=== PATIENT | male | born 1935 | race Caucasian/White ===

== ENCOUNTER 2017-08-28 18:19 | Observation (INO) | payer MEDICARE ==
[~2017-08-28] VITALS: Ht 152.4 cm; Wt 133.6 kg
[2017-08-28] VITALS (8 sets, daily range): BP systolic 130–155; BP diastolic 59–74; PULSE 62–72; RESP 13–20; Ht 152.4 cm; Wt 133.6 kg
[2017-08-28] MEDS ORDERED: TERA5CAP3 PO (18:48)
[2017-08-28] MEDS ORDERED: HYDR-906 PO (18:48)
[2017-08-28] MEDS ORDERED: OMEP20CA16 PO (18:48)
[2017-08-28] MEDS ORDERED: NAPR-685 PO (18:48)
[2017-08-28] MEDS ORDERED: POLYMYXIN/BACITRACIN 1L IRRIG ONE (20:57)
[2017-08-28] MEDS ORDERED: BUPIVACAINE 0.5% (SDV) 30 ML INJ ONE (20:59)
[2017-08-28] MEDS ORDERED: LIDOCAINE 1% (MPF) 30 ML INJ ONE (20:59)
[2017-08-28] MEDS ORDERED: HYDROmorphONE (0.2 MG/ML) 10ML SYG IV PRN (21:00)
[2017-08-28] MEDS ORDERED: CEFAZOLIN 1 GM INJ ONE (21:00)
[2017-08-28] MEDS ORDERED: PROCHLORPERAZINE 10 MG INJ IV PRN (21:00)
[2017-08-28] MEDS ORDERED: OXYCODONE/ACETAMINOPHEN (5/325) TAB PO PRN (21:00)
[2017-08-28] MEDS ORDERED: ONDANSETRON 4 MG INJ IV PRN (21:00)
[2017-08-28] MEDS ORDERED: DIPHENHYDRAMINE 50 MG INJ IV PRN (21:00)
[2017-08-28] MEDS ORDERED: FENTAnyl 50 MCG/ML VIAL IV PRN (21:00)
[2017-08-28] MEDS ORDERED: MEPERIDINE 25 MG INJ IV PRN (21:00)
--- NOTE | 2017-08-28 21:01 | HPN ---
Date/Time of Note Date/Time of Note DATE: 08/28/17 TIME: 21:01 Interval H&P Admission Note Pt. seen H&P reviewed: No system changes SAMUEL ROSE Aug 28, 2017 21:01
[2017-08-28] MEDS ORDERED: FENTAnyl 50 MCG/ML VIAL ONE (21:27)
[2017-08-28] MEDS ORDERED: ROPIVACAINE 0.5 % 30 ML VIAL ONE (21:34)
[2017-08-28] MEDS ORDERED: PROPOFOL 20 ML ONE (21:34)
[2017-08-28] MEDS ORDERED: METOCLOPRAMIDE 10 MG INJ ONE (21:34)
[2017-08-28] MEDS ORDERED: ONDANSETRON 4 MG INJ ONE (21:34)
[2017-08-28] MEDS ORDERED: LIDOCAINE 2% (SDV) 5 ML INJ ONE (21:34)
[2017-08-28] MEDS ORDERED: DEXAMETHASONE 4 MG/ML 1 ML INJ ONE (21:34)
--- NOTE | 2017-08-28 22:59 | OPPN ---
Date/Time of Note Date/Time of Note DATE: 08/28/17 TIME: 22:58 Operative Report Preoperative Diagnosis right distal radius fracture, intra-articular greater than 3 fragments. Right carpal tunnel syndrome Postoperative Diagnosis right distal radius fracture, intra-articular greater than 3 fragments. Right carpal tunnel syndrome Operation/Procedure Performed open reduction internal fixation of right distal radius fracture, intra- articular greater than 3 fragments. 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
[2017-08-29] MEDS ORDERED: OXYCODONE/ACETAMINOPHEN (10/325) TAB PO PRN ×2
[2017-08-29] MEDS ORDERED: hydrALAzine 20 MG INJ IV PRN
[2017-08-29] MEDS ORDERED: LABETALOL HCL 20MG INJ IV PRN
[2017-08-29 00:22] VITALS: BP 132/68; PULSE 72; RESP 18
[2017-08-29 00:34] VITALS: BP 164/74; PULSE 65; RESP 17
[2017-08-29 00:47] VITALS: BP 155/72; PULSE 67; RESP 17
[2017-08-29 01:07] VITALS: BP 143/73; PULSE 63; RESP 17
[2017-08-29 02:33] VITALS: BP 121/57; RESP 20
--- NOTE | 2017-08-29 03:32 | OPR ---
DATE OF OPERATION: 08/28/2017 SURGEON: Adam Herbert MD. ANESTHESIA: General. PREOPERATIVE DIAGNOSES: 1. Right distal radius fracture, intra-articular, greater than 3 fragments. 2. Right carpal tunnel syndrome. POSTOPERATIVE DIAGNOSES: 1. Right distal radius fracture, intra-articular, greater than 3 fragments. 2. Right carpal tunnel syndrome. OPERATIVE PROCEDURE: 1. Open reduction, internal fixation, right distal radius fracture, intra-articular, greater than 3 fragments. 2. Right carpal tunnel release, open. OPERATIVE FINDINGS AT SURGERY: 1. Comminuted displaced right distal radius fracture. 2. Swelling within the right carpal canal. INDICATION FOR PROCEDURE: An 81-year-old male with injury to the right wrist. He was seen in clinic and diagnosed with a displaced comminuted intra-articular distal radius fracture. Given the joint displacement and angulation, and the patient's activity level, he elected to proceed with surgical intervention understanding the risks, benefits. OPERATIVE PROCEDURE: The patient was seen in the preoperative area and all further questions were answered. Again, he gave informed consent understanding risks, benefits. He was taken to the operative suite and placed in supine position. 2 g of Ancef IV was given and tourniquet placed in the right upper extremity. Right upper extremity was prepped with ChloraPrep stick and draped in the usual sterile fashion. Esmarch bandage was used to exsanguinate extremity and tourniquet inflated to 250 mmHg. Attention was first turned to the distal radius fracture and a dorsal approach to the distal radius was utilized with a longitudinal incision, sharp dissection made through skin and subcutaneous tissue. Scissor dissection and blunt dissection revealed the extensor retinaculum. The 3rd dorsal compartment tendon was brought out of its sheath and retracted radially. Second dorsal compartments were retracted radially as well. The 4th dorsal compartment was retracted ulnarly. The fracture fragments were identified and were freed up from surrounding soft tissue and callus. The radial styloid was first addressed and a [employer] distal radius L-type plate was placed on the distal fragment. The plate and distal fragment were then reduced and proximal screws were placed. X-ray imaging showed appropriate hardware placement and bony alignment. Attention then turned to the dorsal-ulnar corner fragment and this was reduced manually and an additional [employer] dorsal distal radius plate was placed on the dorsal-ulnar facet. The 3 distal screws were placed and the fracture was reduced and proximal screws placed. X-ray imaging showed appropriate hardware placement and bony alignment. The wound was copiously irrigated and skin closed with 4-0 nylon. Attention then turned to the carpal tunnel release and a 2.5 cm incision at the base of the palm was utilized with sharp dissection carried down through skin and subcutaneous tissue. The palmar aponeurosis was identified and was incised along its ulnar border. Retractors were deepened and the transverse carpal ligament was identified and incised along its ulnar border approximately 3 mm radial to the hook of the hamate. Retractor placed distally and the distal extent of the transverse carpal ligament was divided under direct visualization. Attention turned proximally and the proximal extent of the transverse carpal ligament was divided under direct visualization. There was swelling within the carpal canal, which caused the contents to move superficially after division of the transverse carpal ligament. Wound was copiously irrigated. Skin closed with 5-0 nylon. Xeroform placed over the wounds followed by sterile gauze, Webril, and a short-arm splint. Tourniquet deflated after 75 minutes and patient was awakened from anesthesia. He was taken to the postoperative suite in stable condition. Tolerated the procedure well without complication. SPECIMENS: None. ESTIMATED BLOOD LOSS: 5 mL. COUNTS: Sponge, instrument, and needle counts correct. TOURNIQUET TIME: 75 minutes. FLUOROSCOPIC IMAGES: 13. FLUOROSCOPIC TIME: 0.3 seconds. CONDITION ON DISCHARGE: Stable. Dictated By: Adam Herbert MD /luis [email or web address]/lisa /Document#: [id number] MARTHA
[2017-08-29 08:03] VITALS: BP 116/57; RESP 18
[2017-08-29] MEDS ORDERED: ONDANSETRON 4 MG INJ IV STA (09:49)
--- NOTE | 2017-08-30 10:33 | RADRPT ---
PROCEDURE: Right wrist series CLINICAL INDICATION: Pain, injury TECHNIQUE: A total of 13 spot films are obtained from the C-arm and submitted for review. COMPARISON: None FINDINGS: 13 spot films are obtained from the C-arm and submitted for review. Images demonstrate internal stab ilization of a comminuted distal radial fracture. Fine detail is limited on the spot films. Fluoroscopy time: 0.2 minutes Number of images/sequences: 13 IMPRESSION: Limited spot films as above. RPTAT:AAJJ Physician Haider Date Time Electronically viewed and signed by Musa Osborne Physician on 08/30/2017 10:33 /
== END 2017-08-29 11:36 | disposition home or self-care (01) ==
LOC: SDS 18:19 → MS1 08-29 00:51
PROVIDERS: ADMIT Orthopaedic Surgery Hand Surgery; ATTEND Orthopaedic Surgery Hand Surgery
DX: S52.571A Other intraarticular fracture of lower end of right radius, initial encounter for closed fracture (principal); G56.01 Carpal tunnel syndrome, right upper limb; K21.9 Gastro-esophageal reflux disease without esophagitis; N40.0 Benign prostatic hyperplasia without lower urinary tract symptoms; Z90.49 Acquired absence of other specified parts of digestive tract; X58.XXXA Exposure to other specified factors, initial encounter; Y93.9 Activity, unspecified; Y99.9 Unspecified external cause status; Y92.9 Unspecified place or not applicable
CPT/HCPCS: 25609; 64721; 73110; C1713; G0378; J0690; J1100; J2405; J2765; J2795; J3010